=== PATIENT | female | born 1985 | race Caucasian/White ===

== ENCOUNTER 2017-01-20 11:26 | Emergency (ER) | payer OTHER ==
[~2017-01-20] VITALS: Ht 157.5 cm; Wt 124.5 kg
[2017-01-20 11:47] VITALS: BP 128/72
--- NOTE | 2017-01-20 11:56 | NUR ---
Patient to bed 09.
--- NOTE | 2017-01-20 12:04 | NUR ---
PATIENT PRESENTS TO ED WITH C/O GROUND LEVEL FALL X 2 DAYS;DENIED KO;c/o HIP, BACK, LEFT ARM PAIN;DIZZINESS X LAST NIGHT WITH SEVERE NAUSEA;HX of HTN, DM, HYPERLIPIDEMIA RX OF METFORMIN (NON COMPLIANT) . SKIN IS PINK/WARM/DRY; AAOX4 WITH EVEN AND STEADY GAIT; LUNGS CLEAR BL; HR EVEN AND REGULAR; PT DENIES ANY FEVER, CP, SOB, OR COUGH AT THIS TIME; PATIENT STATES PAIN OF 8/10 AT THIS TIME; PATIENT POSITIONED FOR COMFORT; HOB ELEVATED; BEDRAILS UP X2; BED DOWN. ER MD MADE AWARE OF PT STATUS.
[2017-01-20] MEDS ORDERED: KETOROLAC 60 MG/2 ML VIAL IM ONE (12:15)
[2017-01-20] MEDS ORDERED: MECLIZINE 25 MG TAB PO ONE (12:15)
--- NOTE | 2017-01-20 12:58 | NUR ---
Prerna AT BEDSIDE.
[2017-01-20] MEDS ORDERED: DIAZEPAM PFS 10 MG/2 ML SYR IM ONE (13:00)
--- NOTE | 2017-01-20 13:09 | NUR ---
MEDICATION ADMINISTERED ORDERED.
[2017-01-20 13:33] VITALS: BP 134/68
--- NOTE | 2017-01-20 13:33 | NUR ---
Patient discharged with v/s stable. Written and verbal after care instructions given and explained. Patient alert, oriented and verbalized understanding of instructions. Ambulatory with steady gait. All questions addressed prior to discharge. ID band removed. Patient advised to follow up with PMD. Rx of MOTRIN,NORCO AND VALIUM given. Patient educated on indication of medication including possible reaction and side effects. Opportunity to ask questions provided and answered.
== END 2017-01-20 13:33 | disposition home or self-care (01) ==
LOC: MED 11:26
DX: R42 Dizziness and giddiness (principal); R07.9 Chest pain, unspecified; M25.552 Pain in left hip; R11.0 Nausea; E11.9 Type 2 diabetes mellitus without complications
CPT/HCPCS: 81002; 81025; 82948; 93005; 96372; 99284; J1885; J3360; J8597

== ENCOUNTER 2017-01-29 01:14 | Emergency (ER) | payer OTHER ==
[~2017-01-29] VITALS: Ht 154.9 cm; Wt 122.5 kg
[2017-01-29 01:35] VITALS: BP 103/49
--- NOTE | 2017-01-29 04:01 | NUR ---
PT TAKEN TO BED 8
--- NOTE | 2017-01-29 04:04 | NUR ---
PATIENT IS A 31 Y/O FEMALE WHO PRESENTS TO THE ED C/O LEFT TOOTHACHE. PT STATES, "I CAN'T STAND THE PAIN." PT REPORTS 10/10 SHARP PAIN THAT RADIATES TO THE LEFT EAR. NOTED NO OBVIOUS BLEEDING. PT REPORTS SOB, CLEAR LUNG SOUNDS BILATERALLY. PT AAOX4, RR EVEN/UNLABORED. PT REPOSITIONED FOR COMFORT, BED IN LOWEST POSITION. ER MD DR. HOLLAND NOTIFIED. WILL CONTINUE TO MONITOR.
--- NOTE | 2017-01-29 05:07 | NUR ---
Dr. Brown evaluating patient at bedside.
[2017-01-29] MEDS ORDERED: KETOROLAC 60 MG/2 ML VIAL IM ONE (05:20)
[2017-01-29 06:30] VITALS: BP 137/82
--- NOTE | 2017-01-29 06:30 | NUR ---
Patient discharged with v/s stable. Written and verbal after care instructions given and explained. Patient alert, oriented and verbalized understanding of instructions. Ambulatory with steady gait. All questions addressed prior to discharge. ID band removed. Patient advised to follow up with PMD. Rx of NORCO 5MG-325MG & MOTRIN 800MG given. Patient educated on indication of medication including possible reaction and side effects. Opportunity to ask questions provided and answered.
== END 2017-01-29 06:30 | disposition home or self-care (01) ==
LOC: MED 01:14
DX: K08.89 Other specified disorders of teeth and supporting structures (principal); E11.9 Type 2 diabetes mellitus without complications
CPT/HCPCS: 96372; 99283; J1885

== ENCOUNTER 2017-02-12 01:01 | Emergency (ER) | payer OTHER ==
[~2017-02-12] VITALS: Ht 154.9 cm; Wt 122.5 kg
[2017-02-12 01:06] VITALS: BP 115/62
--- NOTE | 2017-02-12 01:20 | NUR ---
PT TAKEN TO BED 11.
--- NOTE | 2017-02-12 01:22 | NUR ---
31 Y F BIB SELF C/O RIGHT LOWER MOLAR TOOTHACHE X 3 WEEKS. PT STATES SHE WAS HERE AT [facility] ABOUT 3 WEEKS AGO FOR THE SAME PAIN AND WAS TOLD TO MAKE A DENTAL APPT IN WHICH SHE DID, BUT WHEN SHE WAS SEEN AT THE DENTIST, THEY WOULD NOT DO ANY PROCEDURE B/C HER BP WAS TOO HIGH. PT STATES SHE DOES RECALL HER BP AT THE MOMENT WHEN SHE SAW SHE DENTIST. PT DENIES ANY N/V/D,SOB,CP AT THE MOMENT. PT AAOX4.
--- NOTE | 2017-02-12 01:25 | NUR ---
Patient being evaluated by Dr. Barahona at bedside.
[2017-02-12] MEDS ORDERED: IBUPROFEN 800 MG TAB PO ONE (01:35)
[2017-02-12 01:56] VITALS: BP 12/79
== END 2017-02-12 01:56 | disposition home or self-care (01) ==
LOC: MED 01:01
DX: K02.9 Dental caries, unspecified (principal); E11.9 Type 2 diabetes mellitus without complications; I10 Essential (primary) hypertension
CPT/HCPCS: 99283

== ENCOUNTER 2017-03-16 09:57 | Emergency (ER) | payer SELFPAY ==
[~2017-03-16] VITALS: Ht 154.9 cm; Wt 124.3 kg
[2017-03-16 10:05] VITALS: BP 155/80
--- NOTE | 2017-03-16 10:05 | NUR ---
Patient ambulated to bed 11.
--- NOTE | 2017-03-16 10:07 | NUR ---
PT PRESENTS TO ER W/C/O EPIGASTRIC PAIN & REDIATTES TO MARILU UPPER ABDOMINAL PAIN SINCE LAST NOC. HX DM, MORGAGNI HERNIA, GALLSTONES. DENIES N/V/D; SKIN IS PINK/WARM/DRY; AAOX4 WITH EVEN AND STEADY GAIT; LUNGS CLEAR BL; HR EVEN AND REGULAR; PT DENIES ANY FEVER, CP, SOB, OR COUGH AT THIS TIME; PATIENT STATES PAIN OF 10/10 AT THIS TIME; VSS; PATIENT POSITIONED FOR COMFORT; HOB ELEVATED; BEDRAILS UP X2; BED DOWN. ER MD MADE AWARE OF PT STATUS.
--- NOTE | 2017-03-16 10:15 | NUR ---
Dr. Simpson evaluating patient at bedside. Addendum: 03/16/17 at 1208 by [email or web address] PT DENIES PAIN MED AT THIS TIME.
--- NOTE | 2017-03-16 10:25 | NUR ---
Note undone in EDM - 03/16/17 at 1208 by [email or web address] PT PRESENTS TO ER W/C/O EPIGASTRIC PAIN & REDIATTES TO MARILU UPPER ABDOMINAL PAIN SINCE LAST NOC. HX DM, MORGAGNI HERNIA, GALLSTONES. DENIES N/V/D; SKIN IS PINK/WARM/DRY; AAOX4 WITH EVEN AND STEADY GAIT; LUNGS CLEAR BL; HR EVEN AND REGULAR; PT DENIES ANY FEVER, CP, SOB, OR COUGH AT THIS TIME; PATIENT STATES PAIN OF 10/10 AT THIS TIME; VSS; PATIENT POSITIONED FOR COMFORT; HOB ELEVATED; BEDRAILS UP X2; BED DOWN. ER MADE AWARE OF PT STATUS.
[2017-03-16 11:05] LABS: BASOPHILS # (AUTO) 0.1 K/uL (0.00-0.22); BASOPHILS % (AUTO) 1.8 % (0.0-2.0); EOSINOPHILS # (AUTO) 0.1 K/uL (0-0.4); EOSINOPHILS % (AUTO) 1.8 % (0.0-4.0); HEMATOCRIT 41.2 % (36-48); HEMOGLOBIN 13.9 g/dL (12.0-16.0); LYMPHOCYTES # (AUTO) 1.7 K/uL (2.5-16.5); LYMPHOCYTES % (AUTO) 27.9 % (20.5-51.1); MEAN CORPUSCULAR HEMOGLOBIN 29 pg (27-31); MEAN CORPUSCULAR HGB CONC 34 g/dL (33-37); MEAN CORPUSCULAR VOLUME 87 fL (80-94); MONOCYTES # (AUTO) 0.6 K/uL (0.8-1.0); MONOCYTES % (AUTO) 9.7 % (1.7-9.3); NEUTROPHILS # (AUTO) 3.5 K/uL (1.8-7.7); NEUTROPHILS % (AUTO) 58.8 % (42.2-75.2); PLATELET COUNT (AUTO) 180 K/uL (140-450); RED BLOOD CELL COUNT(AUTO) 4.76 MIL/uL (4.20-5.40); RED CELL DISTRIBUTION WIDTH 11.9 % (11.6-13.7)
[2017-03-16 11:19] LABS: ANION GAP 11.6 (8-16); CARBON DIOXIDE 27.1 mmol/L (21-32); CREATININE 0.7 mg/dL (0.6-1.3); POTASSIUM 3.7 mmol/L (3.5-5.1)
[2017-03-16 11:32] LABS: ALBUMIN 3.5 g/dL (3.4-5.0); TOTAL BILIRUBIN 0.6 mg/dL (0.0-1.0)
[2017-03-16] MEDS ORDERED: FAMOTIDINE 20 MG TAB PO ONE (11:40)
[2017-03-16 12:05] VITALS: BP 109/70
--- NOTE | 2017-03-16 12:05 | NUR ---
Patient discharged with v/s stable. Written and verbal after care instructions given and explained. Patient alert, oriented and verbalized understanding of instructions. Ambulatory with steady gait. All questions addressed prior to discharge. ID band removed. Patient advised to follow up with PMD. Rx of METFORMIN, TRAMADOL & PEPCID given. Patient educated on indication of medication including possible reaction and side effects. Opportunity to ask questions provided and answered.
== END 2017-03-16 12:05 | disposition home or self-care (01) ==
LOC: MED 09:57
DX: K29.70 Gastritis, unspecified, without bleeding (principal); K80.80 Other cholelithiasis without obstruction; E11.9 Type 2 diabetes mellitus without complications; I10 Essential (primary) hypertension
CPT/HCPCS: 36415; 80053; 81002; 81025; 82948; 83690; 84484; 85025; 93005; 99285

== ENCOUNTER 2017-10-22 14:29 | Emergency (ER) | payer OTHER ==
[~2017-10-22] VITALS: Ht 154.9 cm; Wt 122.5 kg
[2017-10-22 14:37] VITALS: BP 122/69
--- NOTE | 2017-10-22 15:20 | NUR ---
PATIENT MOVED TO BED CHAIR #E
[2017-10-22] MEDS ORDERED: NACL 0.9% 1,000 ML IV SCH (15:32)
[2017-10-22] MEDS ORDERED: PROMETHAZINE 25 MG/ML VIAL IM ONE (15:35)
[2017-10-22] MEDS ORDERED: METOCLOPRAMIDE 10 MG/2 ML INJ VIAL IVP ONE (15:35)
[2017-10-22 15:53] LABS: APPEARANCE,URINE CLEAR (CLEAR); BILIRUBIN,URINE 1+ (NEGATIVE); BLOOD, URINE NEGATIVE (NEGATIVE); COLOR,URINE YELLOW (YELLOW); LEUKOCYTE ESTERASE ,URINE NEGATIVE (NEGATIVE); NITRITE, URINE NEGATIVE (NEGATIVE); UGLUCOSE NEGATIVE (NEGATIVE)
[2017-10-22 16:05] LABS: BASOPHILS % (AUTO) 0.4 % (0.0-2.0); EOSINOPHILS # (AUTO) 0.2 K/uL (0-0.4); EOSINOPHILS % (AUTO) 2.2 % (0.0-4.0); HEMATOCRIT 43.3 % (36-48); HEMOGLOBIN 14.6 g/dL (12.0-16.0); LYMPHOCYTES # (AUTO) 2.4 K/uL (2.5-16.5); LYMPHOCYTES % (AUTO) 31.6 % (20.5-51.1); MEAN CORPUSCULAR HEMOGLOBIN 30 pg (27-31); MEAN CORPUSCULAR HGB CONC 34 g/dL (33-37); MEAN CORPUSCULAR VOLUME 87.8 fL (80-94); MONOCYTES # (AUTO) 0.7 K/uL (0.8-1.0); MONOCYTES % (AUTO) 8.8 % (1.7-9.3); NEUTROPHILS # (AUTO) 4.3 K/uL (1.8-7.7); PLATELET COUNT (AUTO) 207 K/uL (140-450); RED BLOOD CELL COUNT(AUTO) 4.93 MIL/uL (4.20-5.40); RED CELL DISTRIBUTION WIDTH 13.3 % (11.6-13.7); WHITE BLOOD COUNT (AUTO) 7.5 K/uL (4.8-10.8)
[2017-10-22 16:11] LABS: RBC,URINE 0-5 (RARE) /HPF (0-5)
[2017-10-22 16:12] LABS: CALCIUM OXALATE CRYSTALS,UR 0-10 /HPF (None Seen)
[2017-10-22 16:30] LABS: ANION GAP 11.6 (8-16); CARBON DIOXIDE 26.2 mmol/L (21-32); CREATININE 1.4 mg/dL (0.6-1.3); POTASSIUM 3.8 mmol/L (3.5-5.1)
[2017-10-22 16:34] LABS: PROTHROMBIN TIME 9.5 secs (10.8-13.4)
[2017-10-22 16:37] LABS: TOTAL BILIRUBIN 0.4 mg/dL (0.0-1.0)
--- NOTE | 2017-10-22 16:54 | NUR ---
PATIENT MOVED TO BED#8. RACENIO AND SUNIL AWARE
--- NOTE | 2017-10-22 17:00 | NUR ---
PATIENT PRESENTS TO ED WITH COMPLAINTS OF DIZZINESS AND HEADACHE X 1 DAY. PATIENT STATES SHES FEELING SLIGHT NAUSEA AND CHEST DISCOMFORT. SKIN IS PINK/WARM/DRY; AAOX4 WITH EVEN AND STEADY GAIT; LUNGS CLEAR BL; HR EVEN AND REGULAR; PT DENIES ANY FEVER, CP, SOB, OR COUGH AT THIS TIME; PATIENT STATES PAIN OF 10/10 AT THIS TIME; VSS; PATIENT POSITIONED FOR COMFORT; HOB ELEVATED; BEDRAILS UP X2; BED DOWN. ER MD MADE AWARE OF PT STATUS.
[2017-10-22] MEDS ORDERED: NACL 0.9% 1,000 ML IV ONE (18:25)
[2017-10-22 19:05] VITALS: BP 110/68
--- NOTE | 2017-10-22 19:05 | NUR ---
Patient discharged with v/s stable. Written and verbal after care instructions given and explained. Patient alert, oriented and verbalized understanding of instructions. Ambulatory with steady gait. All questions addressed prior to discharge. ID band removed. Patient advised to follow up with PMD. Rx of FIORICET given. Patient educated on indication of medication including possible reaction and side effects. Opportunity to ask questions provided and answered.
== END 2017-10-22 19:05 | disposition home or self-care (01) ==
LOC: MED 14:29
DX: T67.5XXA Heat exhaustion, unspecified, initial encounter (principal); E86.0 Dehydration; N28.9 Disorder of kidney and ureter, unspecified; E11.9 Type 2 diabetes mellitus without complications; I10 Essential (primary) hypertension; X30.XXXA Exposure to excessive natural heat, initial encounter; Y93.89 Activity, other specified; Y92.89 Other specified places as the place of occurrence of the external cause; Y99.8 Other external cause status
CPT/HCPCS: 36415; 80053; 81001; 82150; 82948; 83690; 84703; 85025; 85610; 85730; 87086; 96361; 96372; 96374; 99284; J2550; J2765; J7030